=== PATIENT | male | born 2000 | race African-American/Black ===

== ENCOUNTER 2018-06-02 07:21 | Observation (INO) | payer OTHER ==
[2018-06-01 09:45] VITALS: BMI 23.7
[2018-06-02] MEDS ORDERED: Midazolam HCl 2 mg/2 ml Vial ONE ×2 (07:35→10:05)
[2018-06-02] MEDS ORDERED: Fentanyl 100 MCG/2 ML VIAL ONE ×5 (07:36→10:44)
[2018-06-02] MEDS ORDERED: CEFAZOLIN/Water 2 GM/20 ML SYRINGE ONE (07:41)
[2018-06-02] MEDS ORDERED: HYDROcodone/Acetaminophen 7.5/325 mg Tablet PO PRN (07:45)
[2018-06-02] MEDS ORDERED: traMADol HCl 50 MG TAB PO PRN (07:45)
[2018-06-02] MEDS ORDERED: Acetaminophen 325 MG TAB PO PRN (07:45)
[2018-06-02] MEDS ORDERED: Ondansetron HCl/PF 4 MG/2 ML Vial IVP PRN (07:45)
[2018-06-02] MEDS ORDERED: Milk Of Magnesia 30 ML UDCUP PO PRN (07:45)
[2018-06-02] MEDS ORDERED: diphenhydrAMINE 50 MG CAP PO PRN (07:45)
[2018-06-02] MEDS ORDERED: Bisacodyl 10 MG SUPP PR PRN (07:45)
[2018-06-02] MEDS ORDERED: Morphine 4 MG/ML VIAL SLOW IVP PRN (07:45)
[2018-06-02] MEDS ORDERED: Methocarbamol 500 MG TAB PO PRN (07:45)
[2018-06-02] MEDS ORDERED: Ketorolac Tromethamine 30 MG/ML VIAL IVP SCH (12:00)
--- NOTE | 2018-06-02 12:04 | OP ---
DATE OF PROCEDURE: 06/02/2018 PREOPERATIVE DIAGNOSIS: Right knee anterior cruciate ligament tear. POSTOPERATIVE DIAGNOSES: 1. Right knee anterior cruciate ligament tear. 2. Stable tear undersurface posterior horn lateral meniscus directly in front of the popliteus tendo n. 3. Cobblestone appearance of the lateral femoral condyle in an area about 1.5 cm in diameter, most l ikely secondary to impaction injury. SURGEON: Del Joseph M.D. CAFETERIA CASHIER: Chevy Lacy PA-C. PROCEDURE: 1. Exam under anesthesia, right lower extremity. 2. Right knee arthroscopy with arthroscopically assisted ACL reconstruction using autologous patella r tendon graft. COMPLICATIONS: None. ANESTHESIA: He had a general anesthetic as well as preoperative block. DISPOSITION: He went to the recovery room in stable condition. IMPLANTS: Metal interference screw 7 x 25 on the femur, bicortical screw with a smooth washer on the tibia. Both of these were [employer] devices. CONDITION: He went to the recovery room in stable condition. INDICATIONS: A 18-year-old male injured his right knee playing football down at [facility] and wa s found to have an ACL tear. At this time he is presenting for reconstruction. DESCRIPTION OF PROCEDURE: After all appropriate consent forms were explained and signed, he was take n to the operating room and at this time was given general anesthetic. Once anesthesia was appropria te, exam under anesthesia was performed and a positive Ni and a positive pivot shift was noted. At this time, tourniquet was placed on the left thigh. Leg was placed arthroscopic leg parker. Leg was then prepped and draped in standard surgical fashion. Limb was exsanguinated, tourniquet taken up to 250 mmHg. Midline incision was made with a 10 blade down through skin. Bovie was used to coag ulate any brisk venous bleeding. New blade was used to take the paratenon off the underlying patella r tendon. Central third patellar tendon graft was harvested in standard fashion using a double 10 bl nettie saw and osteotome. This was taken to the back table so the femoral plug was a size 10, tibial pl ug was size 11. Graft site was loosely closed with multiple interrupted 0 Vicryls. Inferolateral po rtals established. Scope was placed into the knee joint. We washed out some blood from the knee and once we were able to visualize the knee a diagnostic arthroscopy commenced. Patellofemoral joint wa s found to be in excellent condition. There were no loose bodies noted in the medial or lateral gutt er. The medial compartment was probed and found to be intact. Lateral compartment showed some cobbl estoning of the lateral femoral condyle and an undersurface tear of the posterior horn of the lateral meniscus which was directly in front of the popliteus tendon. At this time, the tear could not be b rought into the wound. A shaver was introduced, disruption of this area. This was left alone to connor thurston upon its own. At this time, notchplasty was performed using the bur and a shaver. Once this was d one, we flexed the knee up into the medial portal, placed an [id number] guide and placed the pin up and out the anterolateral thigh. A 10 mm reamer was used to ream a tunnel to a depth of 30 mm. At this time, all loose bony and cartilaginous debris was removed from the knee joint. The tibial guide was then set at the knee at 52-1/2 degrees and the pin was placed into the knee joint. An 11 mm aco rn reamer was then used to ream our tibial tunnel. Edges were smoothed off with a rasp and a bur and again all loose bony cartilaginous debris was removed from the knee joint. At this time, we went dr cheng. The knee was flexed. Pin was placed up and out the anterolateral thigh using this to pull a pass ing suture up into the knee joint. This was pulled down the tibial tunnel. This was used to pull ou r graft up into the knee. A 7 x 25 metal interference screw was then used to fixate our femoral side . We then drilled, tapped and placed a bicortical screw with a smooth washer on our tibia, tying our sutures around this as a post with the knee in minimal flexion and posterior drawer being applied. At this time, the knee was taken through full range of motion under direct observation with the chance a and the graft was found to not impinge in full extension and through flexion and at this time, the camera was removed. Knee was drained. At this time, we then bone grafted our patellar and tibial si ariadne. We ran our Vicryl to close our paratenon, 2-0 Vicryl and surgical lisa for skin. Bulky ster ile dressing was applied and the tourniquet let down. Toes pinked up nicely. The patient was awaken ed and taken to the recovery room in stable condition. All counts were correct at the end of the shira e and he did receive preoperative IV antibiotics.
[2018-06-02] MEDS: Dextrose 5 %-0.45 % NaCl 1,000 ML IV SCH ×3 (12:26→21:59)
[2018-06-02] MEDS: Famotidine 20 MG TAB PO SCH ×2 (12:26→19:44)
[2018-06-02] MEDS ORDERED: Bupivacaine HCl 0.5%/Epinephrine 1:200,000/PF 30 ml Vial ONE (14:11)
[2018-06-02] MEDS: Ketorolac Tromethamine 30 MG/ML VIAL IVP SCH ×2 (14:52→19:45)
[2018-06-02] MEDS ORDERED: Dexamethasone 20 MG/5 ML VIAL ONE (15:48)
[2018-06-02] MEDS ORDERED: Ketorolac Tromethamine 30 MG/ML VIAL ONE (15:48)
[2018-06-02] MEDS ORDERED: PROPOFOL 200 MG/20 ML VIAL ONE (15:48)
[2018-06-02] MEDS ORDERED: Lidocaine 1% PF 5 ML VIAL ONE (15:48)
[2018-06-02] MEDS ORDERED: Ondansetron HCl/PF 4 MG/2 ML Vial ONE (15:48)
[2018-06-02] MEDS: CEFAZOLIN/Water 2 GM/20 ML SYRINGE SLOW IVP SCH ×2 (17:46→23:05)
[2018-06-02] MEDS: HYDROcodone/Acetaminophen 7.5/325 mg Tablet PO PRN (21:30)
[2018-06-03] MEDS: HYDROcodone/Acetaminophen 7.5/325 mg Tablet PO PRN ×2 (02:23→06:50)
[2018-06-03] MEDS: Ketorolac Tromethamine 30 MG/ML VIAL IVP SCH ×2 (02:27→09:03)
[2018-06-03 08:49] VITALS: BP 125/70; TEMP 97.9
[2018-06-03] MEDS: Famotidine 20 MG TAB PO SCH (09:04)
== END 2018-06-03 11:20 | disposition home or self-care (01) ==
LOC: SDC 07:21 → SURG A 10:56
PROVIDERS: ADMIT Orthopaedic Surgery; ATTEND Orthopaedic Surgery
PROC: 0MRN47Z Replacement of Right Knee Bursa and Ligament with Autologous Tissue Substitute, Percutaneous Endoscopic Approach (ICD-10-PCS; principal; 2018-06-02)
DX: S83.511A Sprain of anterior cruciate ligament of right knee, initial encounter (principal); S83.281A Other tear of lateral meniscus, current injury, right knee, initial encounter
CPT/HCPCS: 96374; 96375; 96376; C1713; G0378; G8978-GP-CI; G8979-GP-CI; G8980-GP-CI; J0670; J1100; J1885; J2001; J2250; J2270; J2405; J2704; J3010